=== PATIENT | male | born 1980 | race Caucasian/White ===

== ENCOUNTER 2019-01-13 19:59 | Emergency (ER) | payer MEDICAID ==
[~2019-01-13] VITALS: Ht 177.8 cm; Wt 90.7 kg
[2019-01-13 20:17] VITALS: BP_SYST 134
[2019-01-13] MEDS ORDERED: HYDROcodone/ACETAMIN 5-325 MG TAB (NORCO/ VICODIN) PO ONE (20:30)
[2019-01-13 21:35] VITALS: BP_SYST 134
== END 2019-01-13 21:35 | disposition home or self-care (01) ==
LOC: SED 19:59
DX: S93.501A Unspecified sprain of right great toe, initial encounter (principal); S93.504A Unspecified sprain of right lesser toe(s), initial encounter; S93.401A Sprain of unspecified ligament of right ankle, initial encounter; S80.01XA Contusion of right knee, initial encounter; R03.0 Elevated blood-pressure reading, without diagnosis of hypertension; W19.XXXA Unspecified fall, initial encounter; Y93.89 Activity, other specified; Y92.69 Other specified industrial and construction area as the place of occurrence of the external cause; Y99.8 Other external cause status
CPT/HCPCS: 73564; 99283